=== PATIENT | male | born 1975 | race Caucasian/White ===

== ENCOUNTER → 2019-04-19 | Outpatient (CLI) | payer OTHER ==
--- NOTE | 2019-04-25 18:05 | PF ---
[address] [address] PULMONARY FUNCTION REPORT Name: ROLAND VALENZUELA Room: [facility]#: [id number] Admission: 04/19/19 Attend Phys: Jennifer Alejandro, Discharge: Date of : 73 Report #: [id number] THIS REPORT FOR: //name// CC: Jennifer Alejandro DATE OF SERVICE: 04/19/2019 FEV1 to FVC ratio is 50% of predicted. FEV1 is 2.75 liters, 62% of predicted. FVC is 5.54 liters, 97% of predicted. FEV1 increased by 10% after bronchodilator use. Total lung capacity is 98% of predicted. Residual volume is 93% of predicted. Pulmonary diffusion capacity is 94% of predicted. In summary, spirometry suggests moderate obstructive lung defect (GOLD grade 2). There is no significant postbronchodilator change. Lung volumes are within normal limits. Pulmonary diffusion capacity is within normal limits. <ELECTRONICALLY SIGNED> By: Ronnie Harris MD 04/25/19 [id number] [id number] Harris MD /nt
== END ==
LOC: M.PUL 04-16 09:54
DX: R06.02 Shortness of breath (principal)